=== PATIENT | female | born 1965 | race Caucasian/White ===

== ENCOUNTER 2018-04-20 12:48 | Emergency (ER) | payer OTHER ==
[2018-04-20 14:08] LABS: BEDSIDE GLUCOSE 92 MG/DL (70-105)
[2018-04-20 14:13] LABS: BASO % 0.6 % (0.0-1.0); EOS # 0.1 10^3/uL (0.0-0.50); EOS % 1.9 % (0.0-3.0); HEMATOCRIT 38.5 % (36.0-47.0); HEMOGLOBIN 13.1 g/dl (12.0-15.5); IMMATURE GRANULOCYTE % 0.6 % (0-3.0); LYMPH # 1.5 10^3/uL (1.5-4.5); LYMPH % 28.7 % (24.0-44.0); MEAN CORPUSCULAR VOLUME 88.3 fl (80.0-96.0); MONO # 0.4 10^3/uL (0.0-0.8); MONO % 7.4 % (0.0-5.0); NEUTROPHILS # 3.1 10^3/uL (1.8-7.7); NEUTROPHILS % 60.8 % (36.0-66.0); PLATELET COUNT, AUTOMATED 256 10^3/uL (150-450); RED BLOOD COUNT 4.36 10^6/uL (4.00-5.40); RED CELL DISTRIBUTION WIDTH 12.8 % (11.5-14.5); WHITE BLOOD COUNT 5.2 10^3/uL (4.0-10.0)
[2018-04-20 14:17] LABS: KETONE, URINE AUTO RFX NEGATIVE (NEGATIVE); NITRITE, URINE AUTO RFX NEGATIVE (NEGATIVE); RBC, URINE AUTO RFX 0 /HPF (0-3); SPECIFIC GRAVITY UR AUTO RFX 1.005 (1.002-1.035); SQUAM EPITHELIAL CELL UR AURFX 1 /HPF (0-6); WBC, URINE AUTO RFX 1 /HPF (0-3)
[2018-04-20 14:34] LABS: AMPHETAMINES LEVEL URINE NEGATIVE (NEGATIVE); BARBITURATES URINE NEGATIVE (NEGATIVE); BENZODIAZEPINES URINE NEGATIVE (NEGATIVE); CANNABINOIDS URINE NEGATIVE (NEGATIVE); COCAINE METABOLITE URINE NEGATIVE (NEGATIVE); METHADONE URINE NEGATIVE (NEGATIVE); OPIATES URINE NEGATIVE (NEGATIVE); PHENCYCLIDINE URINE NEGATIVE (NEGATIVE)
[2018-04-20 14:35] LABS: AMMONIA 21 uMOL/L (<32)
[2018-04-20 14:42] LABS: ALBUMIN 3.7 GM/DL (3.2-5.2); ALBUMIN/GLOBULIN RATIO 1.12 (1.00-1.93); ALKALINE PHOSPHATASE 131 U/L (45-117); ALT/SGPT 48 U/L (12-78); ANION GAP 7 MEQ/L (8-16); AST/SGOT 47 U/L (7-37); BILIRUBIN,DIRECT < 0.1 MG/DL (0.0-0.2); BILIRUBIN,TOTAL 0.3 MG/DL (0.2-1.0); BLOOD UREA NITROGEN 12 MG/DL (7-18); CALCIUM LEVEL 8.9 MG/DL (8.5-10.1); CARBON DIOXIDE LEVEL 29 MEQ/L (21-32); CHLORIDE LEVEL 107 MEQ/L (98-107); CPK CREATINE PHOSPHOKINASE 90 U/L (26-192); ETHYL ALCOHOL (ETHANOL) < 0.003 % (0.000-0.010); GLOMERULAR FILTRATION RATE > 60.0 (>51); GLUCOSE, FASTING 92 MG/DL (70-100); MB/CK RELATIVE INDEX 1.11 (< OR =4); POTASSIUM SERUM 3.9 MEQ/L (3.5-5.1); SODIUM LEVEL 143 MEQ/L (136-145); TROPONIN I < 0.02 NG/ML (< 0.10)
[2018-04-20 14:56] LABS: LEUKOCYTE ESTERASE UR AUTO RFX 1+ (NEGATIVE)
[2018-04-20] MEDS: NS 500 ML IV (17:09)
[2018-04-20 19:39] LABS: CK-MB VALUE MASS < 1.0 NG/ML (<3.6); CPK CREATINE PHOSPHOKINASE 84 U/L (26-192); MB/CK RELATIVE INDEX 1.19 (< OR =4); TROPONIN I < 0.02 NG/ML (< 0.10)
== END 2018-04-20 21:16 | disposition home or self-care (01) ==
LOC: M ED 12:48
DX: R53.1 Weakness (principal); R51 Headache; J44.9 Chronic obstructive pulmonary disease, unspecified; F32.9 Major depressive disorder, single episode, unspecified; E78.9 Disorder of lipoprotein metabolism, unspecified; F41.9 Anxiety disorder, unspecified; E55.9 Vitamin D deficiency, unspecified; I47.1 Supraventricular tachycardia; Z87.891 Personal history of nicotine dependence; Z88.0 Allergy status to penicillin; Z79.899 Other long term (current) drug therapy
CPT/HCPCS: 71046

== ENCOUNTER → 2023-02-23 | Outpatient (REF) | payer OTHER ==
[~2023-02-23] MED LIST: CART180C3 PO; CIPR250T3 PO; DRIS50003 PO; KEPP1TAB PO; MAGN400C2 PO; NORC1TAB7 PO; SERT-138 PO; SERT-141 PO; SIMV40TA20 PO; TIOT18INH INH; TOPA100T12 PO; TOPI1CAP8 PO; TYLE500T78 PO; VITATAB11 PO
[2023-02-23 19:25] LABS: APPEARANCE, URINE HAZY (CLEAR); BACTERIA, URINE AUTO 1+ (NEGATIVE); BILIRUBIN, URINE AUTO NEGATIVE (NEGATIVE); BLOOD, URINE BLOOD 2+ (NEGATIVE); COLOR, URINE AMBER (YELLOW); GLUCOSE, URINE (UA) AUTO NEGATIVE (NEGATIVE); KETONE, URINE AUTO NEGATIVE (NEGATIVE); LEUKOCYTE ESTERASE, URINE AUTO 2+ (NEGATIVE); MUCUS, URINE SMALL (NEGATIVE); NITRITE, URINE AUTO POSITIVE (NEGATIVE); PROTEIN, URINE AUTO NEGATIVE (NEGATIVE); RBC, URINE AUTO 3 /HPF (0-3); SPECIFIC GRAVITY URINE AUTO 1.003 (1.002-1.035); SQUAMOUS EPITHELIAL CELL UR AU 0 /HPF (0-6); WBC, URINE AUTO 101 /HPF (0-3)
== END ==
LOC: M LAB REF 18:30
PROVIDERS: ATTEND Physician Assistant
DX: N39.0 Urinary tract infection, site not specified (principal)

== ENCOUNTER → 2024-04-07 | Outpatient (REF) | payer OTHER ==
[2024-04-07 16:42] LABS: APPEARANCE, URINE HAZY (CLEAR); BACTERIA, URINE AUTO 2+ (NEGATIVE); BILIRUBIN, URINE AUTO NEGATIVE (NEGATIVE); BLOOD, URINE BLOOD 1+ (NEGATIVE); COLOR, URINE YELLOW (YELLOW); GLUCOSE, URINE (UA) AUTO NEGATIVE (NEGATIVE); KETONE, URINE AUTO NEGATIVE (NEGATIVE); LEUKOCYTE ESTERASE, URINE AUTO 3+ (NEGATIVE); MUCUS, URINE SMALL (NEGATIVE); NITRITE, URINE AUTO NEGATIVE (NEGATIVE); PROTEIN, URINE AUTO NEGATIVE (NEGATIVE); RBC, URINE AUTO 0 /HPF (0-3); SQUAMOUS EPITHELIAL CELL UR AU 2 /HPF (0-6); UROBILINOGEN, URINE AUTO 0.2 mg/dL (0.0-2.0); WBC, URINE AUTO 60 /HPF (0-3)
== END ==
LOC: M LAB REF 16:10
PROVIDERS: ATTEND Physician Assistant Medical
DX: N39.0 Urinary tract infection, site not specified (principal)